=== PATIENT | male | born 1985 | race Caucasian/White ===

== ENCOUNTER 2018-08-30 23:42 | Emergency (ER) | payer SELFPAY ==
[2018-08-31] MEDS: DIAZEPAM 5 MG TAB PO (03:42)
[2018-08-31] MEDS: KETOROLAC 30 MG INJ IM (03:43)
== END 2018-08-31 06:50 | disposition home or self-care (01) ==
LOC: FTE 23:42
DX: M25.531 Pain in right wrist (principal); R40.2412 Glasgow coma scale score 13-15, at arrival to emergency department
CPT/HCPCS: 72040; 73110-RT; 96372; 99284-25